=== PATIENT | female | born 1985 | race Two or more races ===

== ENCOUNTER 2017-04-29 00:23 | Inpatient (IN) | payer OTHER ==
[~2017-04-29] VITALS: Ht 160 cm; Wt 92.5 kg
[~2017-04-29 00:23] MED LIST: Hydrocodone/Acetaminophen PO; Ibuprofen PO; PREN1TAB47
[2017-04-29] MEDS ORDERED: Lactated Ringer's 1,000 ML IV PRN (00:58)
[2017-04-29] MEDS ORDERED: Oxytocin 10 Unit/mL Inj IM PRN ×2 (01:00→04:00)
[2017-04-29] MEDS ORDERED: Hemorrhage Kit, Post Partum XX ONE ×2 (01:00→04:00)
[2017-04-29] MEDS ORDERED: Oxytocin 30 Units/500 mL LR 30 UNITS in IV Premix 1 EACH IV PRN ×2 (01:00→04:00)
[2017-04-29] MEDS ORDERED: fentaNYL-PF 50 mCg/mL 2 mL Inj IVPUSH PRN (01:00)
[2017-04-29] MEDS ORDERED: Carboprost 250 mCg/mL Inj IM PRN ×2 (01:00→04:00)
[2017-04-29] MEDS ORDERED: Sodium Chloride LOK Flush 10 mL Syringe IVFLUSH PRN (01:00)
[2017-04-29] MEDS ORDERED: Methylergonovine 0.2 mg/mL Inj IM PRN ×2 (01:00→04:00)
[2017-04-29 01:19] LABS: Mean Corpuscular Hemoglobin 28.2 pg (27.0-35.0); Mean Corpuscular Volume 81.3 fL (81-100)
[2017-04-29] MEDS ORDERED: Lactated Ringer's 500 ML IV ONE (01:39)
[2017-04-29] MEDS: Lactated Ringer's 1,000 ML IV SCH ×6 (01:39→19:56)
[2017-04-29] MEDS ORDERED: Phenylephrine/NS-PF 100 mCg/mL 5 mL Syringe IVPUSH PRN (01:40)
[2017-04-29] MEDS ORDERED: fentaNYL 2 mCg/mL-Bupiv 0.125% 100 ML EPIDURAL SCH (01:40)
[2017-04-29] MEDS ORDERED: EPHEDrine Sulfate 50 mg/mL Inj IVPUSH PRN (01:40)
[2017-04-29] MEDS ORDERED: Atropine 1 mg/10 mL (Code) Syringe IVPUSH PRN (01:40)
--- NOTE | 2017-04-29 01:45 | PCM.HPANE ---
Patient Data Date of Service: Apr 29, 2017 Surgeon Admitting Provider:Avinash Wolfe MD Attending Provider:Avinash Wolfe MD Primary Care Physician:Avinash Wolfe MD Other Provider:Rach Hallman Anesthesia Reason for Visit Term Labor TERM LABOR Ht/WT & BMI Body Mass Index Allergies Coded Allergies: No Known Allergies (Verified , 02/16/07) Past Anesthesia History Anesthesia History: Denies:: Abnormal Airway, Fam Anesthesia Reaction, Fam Malignant Hypertherm Diabetes History Hx Diabetes?: No Medications Hypertension Medication: No Home Meds Incl Beta Kevin: No Active Scripts [Ibuprofen] (Motrin)600 MG TABLET No Conflict [id number] Mg PO Q6H PRN For Mild Pain #20 TABLET Prov:Avinash Wolfe MD 03/19/15 [Hydrocodone/Acetaminophen] (Castella 5-325)1 TAB TABLET No Conflict Check1-2 Tab PO Q4H PRN For Pain #20 TABLET Prov:Avinash Wolfe MD 03/19/15 Reported Medications Vit/Fe Fumarate/Fa-Expunged Drug, Do (-Expunged Drug, Do Not Renew!)1 Tab Tablet 03/04/08 History History of ENT Problems?: No HEENT History: Denies:: Abnormal Airway Denture Type: None Teeth Condition: Within Normal Limits Hx of Heart Problems?: No Cardiovascular History: Denies:: Hypertension Irregular Heartbeat Valvular Heart Disease Hx of Respiratory Problem?: No Respiratory History: Denies:: Asthma Hx Neurologic Problems?: No Neurological History: Denies:: CVA Peripheral Neuropathy Hx of GI Problems?: Yes Gastrointestinal History: Positive for:: Heartburn Hx of Problems?: No Female Hx: Positive for:: Currently Hx Musculoskeletal Problems?: No Hx Surgeries?: No Hx Diabetes: No Smoking Status: Never Smoker Stop/Bang Treated for Sleep Apnea?: No Do You Have a CPAP Machine?: No S-Snoring: Do You Snore Loudly: No T-Tired: feel tired, fatigued: No O-Obsered: Observed not breath: No P-Blood Pressure: treated: No B- Body Mass Index > 35 kg/m2: Yes A- Age over 50: No N- Neck Large Circumference: No G- Gender Male: No SUMAN Risk Assessment: Low Risk, <3 Yes Risk Assessment Category Category 1A: Patient has history of documented sleep apnea, and HAS NOT received any narcotic, sedative or anesthesia administration during this stay. Category 1B: Patient has history of documented sleep apnea, and HAS received any narcotic , sedative or anesthesia administration during this stay Category 2: Patient has SUSPECTED Obstructive Sleep Apnea, and HAS received any narcotic , sedative or anesthesia administration during this stay. Category 3: Patient has SUSPECTED Obstructive Sleep Apnea and HAS NOT received narcotic, sedative or anesthesia administration during this stay. Category 4: Outpatient in Procedural Areas with known sleep apnea or who screen positive for High Risk via the STOP/BANG questionnaire. Exam Exam General Appearance: Alert, Oriented X3, Cooperative, Moderate Distress (labor pain) HEENT/AIRWAY: MP 2 Lungs: Clear to Auscultation, Normal Air Movement Heart: Regular Rate/Rhythm, No Murmurs/Rubs/Gallops Meds/Labs/Diagnostics Labs Test 04/29/17 00:45 04/29/17 01:01 White Blood Count 14.7th/mm3 (3.8-10.1) Red Blood Count 4.33mil/mm3 (3.90-5.20) Hemoglobin 12.2g/dL (12.0-15.6) Hematocrit 35.2% (35.0-46.0) Mean Corpuscular Volume 81.3fL (81-100) Mean Corpuscular Hemoglobin 28.2pg (27.0-35.0) Mean Corpuscular Hemoglobin Concent 34.7% (32.0-37.0) Red Cell Distribution Width 12.9% (12.3-15.4) Platelet Count 165bil/L (150-400) Hold Purple Top Tube Received (Received) Plan Impression Patient chart reviewed, patient interviewed and anesthestic plan with risks, benefits, and alternatives discussed, and informed consent obtained. ASA Physical Status: ASA2 Mod Systemic Disease Anesthetic Plan: Epidural Bene/Risks/Altern/Consents: Yes HP Complete Prior to Induction: Yes Otilio De Leon MD Apr 29, 2017 01:45
[2017-04-29] MEDS ORDERED: HYDROcodone-APAP 5-325 mg Tablet PO PRN (04:00)
[2017-04-29] MEDS ORDERED: LANOlin HPA 7 Gm Ointment TOPICAL PRN (04:00)
[2017-04-29] MEDS ORDERED: TdaP Vaccine 0.5 mL Inj IM ONE (04:00)
[2017-04-29] MEDS ORDERED: Influenza (Adult) Vaccine 0.5 mL Syringe IM ONE (04:00)
[2017-04-29] MEDS ORDERED: Benzocaine (Dermoplast) 20% 60 Gm Spray TOPICAL PRN (04:00)
[2017-04-29] MEDS ORDERED: Measles-Mumps-Rubella Vaccine 0.5 mL Inj SUBQ ONE (04:00)
[2017-04-29] MEDS ORDERED: Witch Hazel-Glycerin Pads TOPICAL PRN (04:00)
[2017-04-29] MEDS: Sodium Chloride LOK Flush 10 mL Syringe IVFLUSH SCH ×2 (08:30→16:30)
--- NOTE | 2017-04-29 13:51 | HP ---
[address] [address] HISTORY AND PHYSICAL PATIENT: FARHAD GRIJALVA : 1985 MR#: [id number] ADMIT: 04/29/2017 JOB ID: [id number] DATE: 04/29/2017 TIME: 0100 The patient was admitted to [facility] early this morning with active labor at full term, anticipating vaginal delivery of 5th child. She has been followed prenatally at [facility], see record for details. course has been uncomplicated, noting however net weight loss during the (9 pounds), although up by 9 pounds during the 2nd half of overall. The patient declined quad screen, but level two sonogram was negative. She has had borderline thyroid enlargement during , yet initial free T4 was normal. Subsequent free T4s were borderline low at 0.8, although patient declined replacement therapy. The patient went into labor on April 28, 2017. She ultimately was admitted early on April 29, 2017, for expectant management for vaginal delivery, and requesting epidural on admission. PHYSICAL EXAMINATION: On admission, last height, weight and blood pressure in the office: 63 inches, 207 pounds, and 122/80, respectively. The lungs clear to auscultation and percussion. Heart: Regular in rate and rhythm. Abdomen: Fundal height 40 cm. Positive heartbeat, vertex presentation. Pelvic examination: Initial cervical exam is at 4-5 cm dilatation range per nursing. IMPRESSION: 1. A 39-5/7 weeks . 2. Active labor. 3. Requesting epidural anesthesia on admission. 4. Reproductive history--four prior vaginal deliveries (first with vacuum traction and hemorrhage), then subsequent miscarriage, then current . 5. Borderline thyromegaly without distinct nodule noted on exam, with borderline low free T4. Patient declining thyroid replacement therapy during although recommended. 6. Increased weight, although net weight loss during the . 7. Rh positive, rubella immune, group B Strep negative. 8. Headache history. 9. History of borderline abnormal Pap ("ASCUS") in 2006, subsequent Pap studies normal reportedly, no cervical treatment. 10. Family history of twins (on father of baby's side). PLAN: The patient was admitted to [facility] on April 29, 2017, at term with active labor, anticipating vaginal . Epidural approved.
--- NOTE | 2017-04-29 13:56 | OP ---
[address] [address] OPERATIVE REPORT PATIENT: FARHAD GRIJALVA : 1985 MR#: [id number] ADMIT: 04/29/2017 JOB ID: [id number] DATE OF SURGERY: 04/29/2017 (delivery) SURGEON: PREOPERATIVE DIAGNOSIS(ES): POSTOPERATIVE DIAGNOSIS(ES): CENTER DELIVERY NOTE: TIME: 0500 The patient was admitted at term in labor, to have fifth child. Epidural was provided at her request for anesthesia. Labor progressed relatively rapidly from 4-5 cm dilatation initially, up to 7 cm and then 10 cm and second stage of labor was rather brief. Note that epidural was not very effective for pain management. Note that heart tracing was typically okay although there were some terminal heart rate drops during the brief second stage of labor, consistent with baby descent with potential cord stretch or compression. Patient was encouraged during this short second stage to push hard and effectively and oxygen therapy was provided when heart drops were noted. Head descended rapidly in the brief second stage of labor to the point of and then delivery occurred of the head, followed directly by the shoulders without dystocia and then the body and extremities. Baby was active and crying upon delivery. After 1 minute of delay, umbilical cord was clamped and cut and baby was handed to mother for bonding and further nurse management. Cord blood was obtained for routine studies. Placenta with membranes were then spontaneously expelled, with approximately 300 cc of blood noted behind the membranes upon placental delivery. Uterus then contracted well with massage plus intravenous Pitocin infusion. Blood loss estimated for the entire delivery was in the 300 cc range. Betadine solution was used to cleanse the vulvovaginal region and there was noted only small and relatively short second-degree midline perineal laceration, easily repaired with 3-0 chromic suture in running deep and then more superficial/subcuticular layers. There was no hematoma formation, and hemostasis was noted to be complete. At procedure's close, uterine bleeding was minimal, laceration had been well repaired, baby was active and crying, and instrument/needle/sponge counts were all found to be correct. It certainly is anticipated that mother and baby will do very well during the timeframe.
[2017-04-30] MEDS: Sodium Chloride LOK Flush 10 mL Syringe IVFLUSH SCH (00:30)
[2017-04-30] MEDS: Lactated Ringer's 1,000 ML IV SCH (01:39)
[2017-04-30 06:52] LABS: Mean Corpuscular Hemoglobin 28.3 pg (27.0-35.0); Mean Corpuscular Volume 84.6 fL (81-100)
[2017-04-30] MEDS ORDERED: IBUP-1827 PO (06:57)
--- NOTE | 2017-04-30 06:57 | PCM.DIOB ---
Obstetrical Disch Instruction Dates of Hospitalization Date of Hospital Admission Apr 29, 2017 at 00:42 Providers Admitting Physician: Avinash Wolfe MD Primary Care Physician: Avinash Wolfe MD Attending Physician: Avinash Wolfe MD Discharge Diagnosis Problems: (1) Status: Acute ICD Code: Z33.1 Diet Discharge Diet: No restrictions Activity Discharge Activity-General: Pelvic Rest for 6 weeks Dressing and Incisional Care Hygiene: May shower, Perineal care, Sitz bath, Dermoplast spray, Witch Stephanie pads, Ice Follow Up Plan Follow-up appointment: Weeks (Call Office tomorrow afternoon to schedule checkup in 6 weeks.) Call your provider for: Fever or Chills, Shortness of breath, Heavy vaginal bleeding, Red painful breasts Avinash Wolfe MD Apr 30, 2017 06:56
[2017-04-30 09:58] VITALS: BP 123/71; PULSE 80; RESP 18
--- NOTE | 2017-04-30 13:03 | DIS ---
[address] [address] DISCHARGE SUMMARY PATIENT: FARHAD GRIJALVA : 1985 MR#: [id number] ADMIT: 04/29/2017 JOB ID: [id number] DIS: 04/30/2017 DISCHARGE DIAGNOSIS: Term , delivered. PROCEDURES PERFORMED DURING HOSPITALIZATION: 1. Vaginal delivery. 2. Perineal laceration repair. 3. Epidural anesthesia. HOSPITAL COURSE: The patient was admitted to [facility] on April 29, 2017, and underwent procedures as described. During the timeframe, patient did well, with acceptable vitals, afebrile, with reasonable bleeding, pain management using ibuprofen, ambulating and voiding, without leg pain or shortness of breath, and handling baby well. hemoglobin was okay. The patient requested discharge to home on the first day, i.e., on April 30, 2017. DISCHARGE PROGRAM: Patient will call p.r.n., otherwise she will follow up in six weeks for checkup at [facility]. She will observe pelvic rest for six weeks. DISCHARGE MEDICATIONS: Include: 1. Ibuprofen 600 mg, prescription written. 2. Also, vitamin daily. The patient has supply at home.
== END 2017-04-30 10:56 | disposition home or self-care (01) | DRG 560 ==
LOC: FBCO 00:23 → FBC 00:42
PROVIDERS: ADMIT Obstetrics & Gynecology; ATTEND Obstetrics & Gynecology
PROC: 10E0XZZ Delivery of Products of Conception, External Approach (ICD-10-PCS; principal; 2017-04-29)
PROC: 0KQM0ZZ Repair Perineum Muscle, Open Approach (ICD-10-PCS; 2017-04-29)
DX: O70.1 Second degree perineal laceration during delivery (principal); Z37.0 Single live birth; Z3A.39 39 weeks gestation of pregnancy

== ENCOUNTER 2017-05-06 16:22 | Emergency (ER) | payer OTHER ==
[~2017-05-06] VITALS: Ht 165.1 cm; Wt 85.0 kg
[~2017-05-06 16:22] MED LIST changes: -Hydrocodone/Acetaminophen PO; +IBUP-1827 PO; -Ibuprofen PO
[2017-05-06 16:31] VITALS: BP 133/89; PULSE 84; RESP 20; O2SAT 99
[2017-05-06 17:52] LABS: BASOPHILS % (AUTO) 0.2 % (0-3); EOSINOPHILS % (AUTO) 0.5 % (0-5); MONOCYTES % (AUTO) 10.6 % (4-12); Mean Corpuscular Volume 83.3 fL (81-100); NEUTROPHILS % (AUTO) 61.1 % (40-74); Platelet Count 256 bil/L (150-400)
== END 2017-05-06 17:59 | disposition left against medical advice (07) ==
LOC: SED 16:22
DX: Z53.20 Procedure and treatment not carried out because of patient's decision for unspecified reasons (principal)
CPT/HCPCS: 80053; 81002; 85025; G0463